=== PATIENT | male | born 1960 | race Caucasian/White ===

== ENCOUNTER 2017-12-13 15:14 | Emergency (ER) | payer OTHER ==
[~2017-12-13] VITALS: Ht 188 cm; Wt 127.3 kg
[2017-12-13 15:16] VITALS: BP 152/95; PULSE 93; RESP 15; TEMP 97.9; O2SAT 97
--- NOTE | 2017-12-13 16:23 | RADRPT ---
EXAM DATE/TIME: 12/13/2017 16:06 [place] COMPARISON: No previous studies available for comparison. INDICATIONS : Pain with no known injury. MEDICAL HISTORY : None. SURGICAL HISTORY : Meniscus surgery 10 years ago. ENCOUNTER: Initial ACUITY: 1 day PAIN SCORE: 6/10 LOCATION: Right Knee. FINDINGS: The patient is post ACL reconstruction. There are severe tricompartmental osteoarthritic changes within the right knee. There is minimal effu tali. CONCLUSION: 1. Post surgical changes with severe tricompartmental osteoarthritis. Magen Pope MD on December 13, 2017 at 16:20 Board Certified Radiologist. This report was verified electronically.
--- NOTE | 2017-12-13 17:36 | PD ---
HPI Chief Complaint: Injury Time Seen by Provider: 17:27 Travel History International Travel<30 days: No Contact w/Intl Traveler<30days: No Traveled to known affect area: No History of Present Illness HPI 57-year-old male presents for evaluation of right knee pain. He reports that yesterday he was stepping down from a tractor trailer when he "missed a step" and twisted his right knee. Since then he's had right knee pain which is aching and constant worse with movement. He denies any other injuries and he has no other complaints at this time. [facility] Social History Alcohol Use: Yes Tobacco Use: No Review of Systems Musculoskeletal: Positive: Pain, No: Limited ROM Skin: Positive Other (denies open wounds) Physical Exam Narrative GENERAL: Well-nourished male in no acute distress SKIN: Warm and dry. CARDIOVASCULAR: Regular rate and rhythm. No murmur appreciated. RESPIRATORY: No accessory muscle use. Clear to auscultation. Breath sounds equal bilaterally. MUSCULOSKELETAL: No obvious deformities. There is no reproducible bony tenderness to palpation of the right knee. There is pain with flexion and extension of the right knee. Some crepitus is noted. No obvious joint effusion. There is no obvious laxity in valgus/varus/anterior/posterior stress. NEUROLOGICAL: Awake and alert. No obvious cranial nerve deficits. Motor grossly within normal limits. Normal speech. Data Data Last Documented VS Vital Signs Date Time Temp Pulse Resp B/P (MAP) Pulse Ox O2 Delivery O2 Flow Rate FiO2 12/13/17 15:16 97.9 93 15 152/95 (114) 97 Room Air Orders Orders Knee, Complete (4vws) (12/13/17 ) [facility] Medical Decision Making Medical Screen Exam Complete: Yes Emergency Medical Condition: Yes Medical Record Reviewed: Yes Differential Diagnosis Ligamentous disruption, meniscal disruption, fracture, contusion Narrative Course Osteoarthritis is noted on the x-ray, Acute bony abnormalities. The patient is declining crutches. I recommended follow-up with primary care physician in 2 weeks for recheck, possible MRI imaging of symptoms persist. Diagnosis Primary Impression: Strain of right knee Patient Instructions: General Instructions, Knee Pain (ED) Additional Instructions: Rest, ice the affected area several times a day 15 minutes at a time, Tylenol or Motrin for pain. Follow-up with primary care physician for recheck in 2 weeks. Return for any emergent medical conditions. Med/Other Pt SpecificInfo: No Change to Meds Disposition: 01 DISCHARGE HOME Condition: Stable Gaetano Nina Dec 13, 2017 17:36
== END 2017-12-13 18:20 | disposition home or self-care (01) ==
LOC: NEPK 15:14
DX: S86.911A Strain of unspecified muscle(s) and tendon(s) at lower leg level, right leg, initial encounter (principal); X50.1XXA Overexertion from prolonged static or awkward postures, initial encounter; Y93.89 Activity, other specified
CPT/HCPCS: 73564; 99283